=== PATIENT | male | born 1950 | race Caucasian/White ===

== ENCOUNTER 2016-10-18 13:34 | Day surgery (SDC) | payer OTHER ==
[~2016-10-18] VITALS: Ht 185.4 cm; Wt 92.9 kg
[~2016-10-18 13:34] MED LIST: 0.9% Sodium Chloride 1,000 ML IV SCH; ASPI-973 PO; ATOR20TA PO; Sodium Biphos-Phos 133 mL Enema RECTAL PRN; Sodium Chloride LOK Flush 10 mL Syringe IV PRN; fentaNYL-PF 50 mCg/mL 2 mL Inj IVPUSH PRN
[2016-10-18 13:46] VITALS: BP 120/75; PULSE 90; RESP 16; O2SAT 94
[2016-10-18 15:04] VITALS: BP 104/69; PULSE 50; O2SAT 97
[2016-10-18 15:13] VITALS: BP 99/69; PULSE 50; RESP 15; O2SAT 97
[2016-10-18 15:23] VITALS: BP 99/69; PULSE 50; RESP 15; O2SAT 97
--- NOTE | 2016-10-18 15:47 | ENDO ---
[address] [address] ENDOSCOPY PROCEDURE PATIENT: TAYLOR BULLARD : 1950 MR#: [id number] ADMIT: 10/18/2016 JOB ID: [id number] DATE: 10/18/2016 PRE-PROCEDURE DIAGNOSIS: Hemoccult-positive stool. POSTPROCEDURE DIAGNOSIS: Colon and rectal polyps x11. PROCEDURE: Colonoscopy with biopsies. ENDOSCOPIST: Dr. Michael Rowe. MEDICATIONS: Versed 7 mg, fentanyl 150 mcg in incremental doses. INDICATIONS: The patient is a 66-year-old man who has never previously undergone colonoscopy. He underwent stool testing for Hemoccult-positive stool which came back positive. He had not had any visible blood in his stool. He had no family history of colon cancer. After discussion of risks and benefits, he agreed to proceed with colonoscopy. FINDINGS: A total of 11 polyps were removed. There were two in the rectum. There was one in the sigmoid colon. There were two in the descending colon. There were five polyps in the transverse colon and there was one polyp at the splenic flexure. There were no other mucosal abnormalities. DESCRIPTION OF PROCEDURE: Procedural sedation was achieved. He was connected to hemodynamic monitoring, pulse oximetry, capnography. After digital rectal examination, the PCF H 180 AL colonoscope was passed under visualization until the ileocecal valve and appendiceal orifice were visualized and photo documented. The quality of the prep was adequate. The scope was withdrawn and retroflexed in the rectum. Findings were as described above. The largest polyp measured approximately 4 mm in diameter. Polypectomy was performed using a combination of cold forceps and cold snare. All polyps were sent for permanent pathology. There was minimal bleeding from the polypectomy sites. Retroflexion revealed no significant internal hemorrhoids. No other masses or mucosal abnormalities were appreciated. The scope was withdrawn and the procedure terminated. He tolerated the procedure well. RECOMMENDATIONS: Because of the total of 11 polyps, recommend repeat colonoscopy in one year.
--- NOTE | 2016-10-20 14:20 | PATH ---
SURGICAL PATHOLOGY Attending Physician:Laron Jimenez CASE STATUS: Signed Out PATIENT NAME: TAYLOR BULLARD PID: [id number] : 1950 DATE COLLECTED:10/18/2016 00:00 SPECIMEN: 1: Colon, Biopsy 2: Colon, Biopsy 3: Colon, Biopsy 4: Colon, Biopsy 5: Rectum, Biopsy CLINICAL HISTORY: 1). SPLENIC FLEXURE POLYP 2). TRANSVERSE COLON POLYPS X5 3). DESCENDING COLON POLYP X2 4). SIGMOID COLON POLYP X1 5). 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 2.TRANSVERSE COLON POLYPS: TUBULAR ADENOMA INVOLVING MULTIPLE BIOPSY FRAGMENTS. 3.DESCENDING COLON POLYP: TUBULAR ADENOMA INVOLVING ALL BIOPSY FRAGMENTS. 4.SIGMOID COLON POLYP: TUBULAR ADENOMA. 5.RECTAL POLYP: TUBULAR ADENOMA INVOLVING SINGLE BIOPSY FRAGMENT. ICD10 CODE D12.3 GROSS DESCRIPTION: The specimen is received in five formalin filled containers labeled with the patient's name. 1). The specimen is sublabeled "splenic flexure polyp" and consists of 2 portions of tissue which aggregate to 0.3 x 0.3 x 0.3 CM. The specimen is entirely submitted in cassette 1A. 2). The specimen is sublabeled "transverse colon polyp x5" and consists of multiple fragments of tissue and or debris which aggregate to 0.6-0.5 x 0.3 CM. The specimen is entirely submitted in cassette 2A. 3). The specimen is sublabeled "descending colon polyp X2" and consists of 5 portions of tissue which aggregate to 0.6 0.5 x 0.4 CM. The specimen is entirely submitted in cassette 3A. 4). The specimen is sublabeled "sigmoid polyp x1" and consists of a 0.3 x 0.3 x 0.3 CM portion of tissue which is entirely submitted in cassette 4A. 5). The specimen is sublabeled "rectal polyp x2" and consists of 2 portions of tissue which aggregate to 0.4 x 0.3 x 0.2 CM. Specimen is entirely submitted in cassette 5A. 10/19/2016 DAC MICRO DESCRIPTION: See diagnosis. ICD-9 CODES: CPT CODES: 1: 57970 2: 89418 3: 78015 4: 44581 5: 10899 Electronically Signed Out Mack E. Bauermeister,MD [facility] [address], [place] [address] Technical component performed at [facility], [facility] [address], [place], [address]
== END 2016-10-18 23:59 | disposition home or self-care (01) ==
LOC: END 13:34
PROVIDERS: ATTEND Student in an Organized Health Care Education/Training Program
DX: D12.2 Benign neoplasm of ascending colon (principal); D12.3 Benign neoplasm of transverse colon; D12.4 Benign neoplasm of descending colon; D12.5 Benign neoplasm of sigmoid colon; D12.8 Benign neoplasm of rectum; E78.5 Hyperlipidemia, unspecified; F17.210 Nicotine dependence, cigarettes, uncomplicated; Z79.82 Long term (current) use of aspirin
CPT/HCPCS: 45380; 45385; J2250; J7030

== ENCOUNTER 2017-02-27 13:14 | Emergency (ER) | payer OTHER ==
[~2017-02-27] VITALS: Ht 185.4 cm; Wt 95.5 kg
[~2017-02-27 13:14] MED LIST changes: -0.9% Sodium Chloride 1,000 ML IV SCH; -Sodium Biphos-Phos 133 mL Enema RECTAL PRN; -Sodium Chloride LOK Flush 10 mL Syringe IV PRN; -fentaNYL-PF 50 mCg/mL 2 mL Inj IVPUSH PRN
[2017-02-27 13:16] VITALS: BP 154/98; PULSE 70; RESP 18; O2SAT 95
--- NOTE | 2017-02-27 13:37 | ED.REPORT ---
HPI-General Illness Date of Service February 27, 2017 ED Provider: Rip Pierre MD Patient is a 66 year old male who presents to the ED due to a possible reaction to Amoxicillin. Associated symptoms include weakness, diaphoresis, erythema of his skin, tingling in to his toes and abdominal pain. The patient reports that he has been sick for the past month and found an old bottle of Amoxicillin. Within 30 minutes of taking the pills he felt he was having a "reaction". He reports he has taken Amoxicillin before without experiencing these symptoms. Nursing Notes Stated Complaint: POSSIBLE ALLERGIC REACTION Chief Complaint: Allergic Reaction Nursing Notes Reviewed: Yes Allergies: Coded Allergies: No Known Allergies (Unverified , 10/18/16) Scheduled Aspirin (Aspirin) 81 Mg Tablet 81 MG PO DAILY Atorvastatin (Lipitor) 20 Mg Tablet 20 MG PO DAILY Prednisone (PredniSONE) 20 Mg Tablet 20 MG PO DAILY General Time Seen by MD: 13:34 Chief Complaint Allergic reaction Hx Obtained From: Patient Arrived By: Walk-in Onset Occurred: Just prior to arrival Context of Onset: Other (Amoxicillin 500 mg tablet) Severity: Current: No pain currently Recent Healthcare: No recent doctor visit Past Medical History Past Medical History Notes: None reported Past Surgical History None reported Smoking History Current Every Day Smoker Social History Alcohol Use: "Social" Drug Use: Denies drug use Ambulatory Status Independent Review of Systems Full Review of Systems Constitutional: Denies: Chills, Fatigue, Fever, Lethargy, Malaise, Recent wt loss, Weakness - generalized Respiratory: Reports: Non-productive cough, Denies: Dyspnea on exertion, Hemoptysis, Pleuritic pain, Shortness of breath , Wheezing Cardiovascular: Denies: Chest pain, Dyspnea on exertion, Edema GI: Denies: Abdominal pain, Anorexia, Bloody/tarry stool, Constipation, Diarrhea, Nausea, Vomiting Male: Denies Dysuria, Denies Flank pain, Denies Hematuria, Denies Incontinence Musculoskeletal: Denies: Back pain, Extremity pain, Extremity swelling Hematologic: Denies Bleeding Skin: Reports Rash (Resolved), Denies Bruising, Denies Diaphoresis, Denies Itching, Denies Swelling Allergy / Immune: Reports: Allergic reaction, Denies: Anaphylaxis, Hives, Itching, Rhinorrhea, Sneezing Neurologic: Denies: Abnormal movement, Bladder dysfunction, Bowel dysfunction, Change LOC, Dizziness, Focal weakness Psychiatric: Denies: Anxiety Physical Exam Vital Signs Vital Signs Date Time Temp Pulse Resp B/P Pulse Ox O2 Delivery O2 Flow Rate FiO2 02/27/17 16:42 60 20 137/86 97 Room Air 02/27/17 16:38 60 20 137/86 97 Room Air 02/27/17 13:16 36.1 70 18 154/98 95 Room Air Initial VS: Reviewed, Vital signs normal General/Constitutional: Well-developed, Well-nourished Head / Eyes: Atraumatic, Normocephalic, PERRL ENT: Mucous membranes moist, Conjunctiva normal, No scleral icterus Neck: Supple, Non-tender, Full range of motion Respiratory: Breath sounds normal, Clear to auscultation, No respiratory distress Cardiovascular: Regular rate & rhythm, Heart sounds normal, Intact distal pulses Abdomen / GI: Soft, Non-tender, No guarding, No rebound, No distention Back: No CVA tenderness Lymphatic: No lymphadenopathy Extremities: Vascular intact, Neuro intact, No swelling, No tenderness Skin: Warm, Dry, No cyanosis Neurologic: Alert, Oriented, Nonfocal Psychiatric: Mood/affect normal, Behavior normal, Normal thought content Head / Eyes: No periorbital redness, Conjunctiva NL ENT: Atraumatic, Mucous membranes moist, Pharynx NL, Nose exam NL, No sinus tenderness, No facial swelling Neck: Atraumatic, Supple, Full range of motion, No adenopathy, No swelling, Non -tender Interpretation & Diagnostics Lab Results Interpretation Result Diagram: 02/27/17 1440 02/27/17 1440 Test 02/27/17 14:40 White Blood Count 11.9th/mm3 (3.8-10.1) Red Blood Count 5.38mil/mm3 (4.40-5.80) Hemoglobin 16.7g/dL (13.8-17.2) Hematocrit 47.9% (41.0-50.0) Mean Corpuscular Volume 89.0fL (81-100) Mean Corpuscular Hemoglobin 31.0pg (27.0-35.0) Mean Corpuscular Hemoglobin Concent 34.9% (32.0-37.0) Red Cell Distribution Width 13.4% (12.3-15.4) Platelet Count 227bil/L (150-400) Neutrophils (%) (Auto) 81.7% (40-74) Lymphocytes (%) (Auto) 9.5% (14-46) Monocytes (%) (Auto) 7.6% (4-12) Eosinophils (%) (Auto) 0.8% (0-5) Basophils (%) (Auto) 0.1% (0-3) Sodium Level 141mEq/L (134-144) Potassium Level 4.1mEq/L (3.5-5.2) Chloride Level 103mEq/L (97-108) Carbon Dioxide Level 25mmol/L (18-29) Blood Urea Nitrogen 21mg/dL (8-27) Creatinine 1.19mg/dL (0.76-1.27) Estimat Glomerular Filtration Rate 65mL/min (>59) Glucose Level 102mg/dL (60-99) Calcium Level 9.9mg/dL (8.5-10.1) Total Bilirubin 0.5mg/dL (0.0-1.2) Aspartate Amino Transf (AST/SGOT) 17U/L (0-50) Alanine Aminotransferase (ALT/SGPT) 20U/L (0-44) Alkaline Phosphatase 72U/L (25-160) Troponin T < 0.010ug/L (0.0-0.011) Total Protein 7.2g/dL (6.4-8.4) Albumin 4.4g/dL (3.4-5.0) Hold Boo Top Tube Received (Received) ECG Interpretation ECG Interpretation: Sinus rhythm Rate [address] changes Time: 15:45 Interpreted by: ED physician CBC Interpretation WBC elevated (11.9) BMP / CMP Interpretation BMP/CMP normal X-Ray Chest Interpretation Chest Xray Interpretation: No acute cardiopulmonary disease Interpretation / Wet Read by: Interpret - Radiologist Re-Eval/Medical Decision Med Decision/Clinical Course 66 year old male presents to ER c/o allergic reaction to Amoxicillin, 500 mg, 1 tab that he took just prior to arrival to ED tying to get some relief from "cold " he has been having for a month now. All symptoms has been resolved on admission. Hemodynamically stable all the time while in ED. No new symptoms. Work up is negative except mildly elevated white blood count. He received Rx for Prednisone, 20 mg for 5 days. He will follow up with his PCP within a week. He will return to ED if new symptoms develop. Plan has been discussed with the patient. He agrees with the plan. Discharge & Departure Shift Change Sign-Out Response to Therapy: Improved Primary Impression: Allergic reaction Encounter type: initial encounter Qualified Code: T78.40XA - Allergy, unspecified, initial encounter Additional Impression: Chronic cough Disposition: Home Discharge Condition Condition: Stable Additional Instructions: Thank you for seeking care at Emergency Department today. Your work up did not reveal any life threatening condition. What ever allergic reaction you had too Amoxicillin, it has been resolved on its own. The only abnormal rest result you have is a mildly elevated white blood count. You have received a prescription for Prednisone, 20 mg daily for 5 days. Please take it as directed. Hopefully your cough will get better. Stop smoking ! Please call your PCP and make a follow up appointment. Please return to Emergency Department if you develop new symptoms. Thank you for letting us partake in your care today. Referrals: Tiffany Marcano (PCP) EDSupervising Provider for APC: Rip Pierre MD Attending Statement Attending attestation: I saw this patient in conjunction with the above named resident. I was present for all leahy portions of the history taking and physical examination. I agree with the workup, evaluation, treatment and disposition. Rip Pierre MD copies to: Tiffany Marcano Beck O MD February 27, 2017 13:37 Alia Branch February 27, 2017 13:57 Emma García DO February 27, 2017 16:38
[2017-02-27 14:48] LABS: BASOPHILS % (AUTO) 0.1 % (0-3); EOSINOPHILS % (AUTO) 0.8 % (0-5); MONOCYTES % (AUTO) 7.6 % (4-12); NEUTROPHILS % (AUTO) 81.7 % (40-74); Platelet Count 227 bil/L (150-400)
[2017-02-27 15:10] LABS: TROPONIN T < 0.010 ug/L (0.0-0.011)
--- NOTE | 2017-02-27 15:17 | DRSVH ---
PROCEDURE: X-RAY CHEST, TWO VIEWS ([id number]) INDICATIONS: cough TECHNIQUE: 2 views of the chest were acquired. COMPARISON: None. FINDINGS: Surgical changes and devices: None. Lungs and pleura: No pleural effusions or pneumothorax. Lungs are clear. Mediastinum: Mediastinal contours are normal. Heart size is normal. Bones and chest wall: No suspicious bony abnormalities. Soft tissues appear unremarkable. IMPRESSION: No acute pulmonary process. Dictated by: Rosmery Das M.D. on 02/27/2017 at 15:15 Approved by: Rosmery Das M.D. on 02/27/2017 at 15:16
[2017-02-27 16:38] VITALS: BP 137/86; PULSE 60; RESP 20; O2SAT 97
[2017-02-27] MEDS ORDERED: PRE20 PO (16:39)
[2017-02-27 16:42] VITALS: BP 137/86; PULSE 60; RESP 20; O2SAT 97
== END 2017-02-27 16:43 | disposition home or self-care (01) ==
LOC: SED 13:14
DX: R53.1 Weakness (principal); R61 Generalized hyperhidrosis; L53.9 Erythematous condition, unspecified; R20.2 Paresthesia of skin; R05 Cough; T36.0X5A Adverse effect of penicillins, initial encounter; Y93.89 Activity, other specified; Y92.89 Other specified places as the place of occurrence of the external cause; Y99.8 Other external cause status; F17.200 Nicotine dependence, unspecified, uncomplicated; Z79.82 Long term (current) use of aspirin